=== PATIENT | male | born 1995 | race Caucasian/White ===

== ENCOUNTER 2018-07-31 18:50 | Emergency (ER) | payer BC | END 2018-07-31 19:55 | disposition home or self-care (01) | LOC: ERS 18:50 | DX: L05.01 Pilonidal cyst with abscess (principal); F42.9 Obsessive-compulsive disorder, unspecified; F41.9 Anxiety disorder, unspecified; Z79.899 Other long term (current) drug therapy; Z79.1 Long term (current) use of non-steroidal anti-inflammatories (NSAID) | CPT/HCPCS: 99283 ==